=== PATIENT | female | born 1990 | race Caucasian/White ===

== ENCOUNTER 2021-05-28 13:20 | Emergency (ER) | payer OTHER, SELFPAY ==
--- OUTSIDE RECORDS SUMMARY | 2021-05-28 13:23 | XMS REPORT | Continuity of Care Document ---
:1990 Author Organization [facility] t Address [address] [place] [address] Care Team Providers Name Role Phone Asked, Pcp Primary Care Physician Unavailable Arnold Attending Clinician Unavailable Arnold Attending Clinician Unavailable Sugar CARNEY B Attending Clinician Terrell Attending Clinician Vika Garcia MD Attending Clinician Arnold Admitting Clinician Unavailable Payers Payer Name Policy Type Policy Number Effective Date Expiration Date S ource Problems Condition Condition Condition Status Onset Resolution Last Treating Co mments Source Name Details Category Date Date Treatment Clinician Date No known No known Disease Unive rs active active ity of problems problems [facility] Allergies, Adverse Reactions, Alerts Allergy Allergy Status Severity Reaction(s) Onset Inactive Treating Comm ents Source Name Type Date Date Clinician mirtazap Drug Active Moderate restless/spa [facility] No Known Drug Active [facility] mirtazap Drug Active Moderate restless/spa [facility] mirtazap Drug Active Moderate restless/spa [facility] mirtazap Drug Active Moderate restless/spa [facility] Social History Social Habit Start Date Stop Date Quantity Comments Source Alcohol intake [facility] Sex Assigned At [facility] Cigarettes smoked 2016-06-28 2016-06-28 [facility] current (pack per 00:00:00 00:00:00 day) - Reported Smoking Status Start Date Stop Date Source Current every day smoker 2018-12-10 00:00:00 [facility] Medications Ordered Filled Start Stop Current Ordering Indication Dosage Frequency Signature Comments Components Source Medication Medication Date Date Medication? Clinician (SIG) Name Name lamoTRIgine Yes 25mg 25 mg, Univ ers (LAMICTAL) 12-11 Oral, ity of tablet 25 21:00: DAILY, [place] mg 00 First dose Medical on Mon Branch 12/11/18 at 1600, Until Discontinu ed, Routine Yes 1{tbl} 1 tablet, Un guru vitamin 12-11 Oral, ity of w/FA 15:15: DAILY, [place] (PRENATABS 00 First dose Med ical RX) tablet on Mon Branch 1 tablet 12/11/18 at 1015, Until Discontinu ed, Routine Nitrofurant 2019- No 100mg 100 mg, U nivers oin&Nit. 12-11 Oral, BID, ity of Macrocryst 15:15: 12:59 14 doses, [place] (MACROBID) 00 :00 First dose Med ical 100 mg on Mon Branch capsule 100 12/11/18 at mg 1015, Last dose on 12/17/18 at 2000, AGUSTÍN
Re ason for Anti-Infec tive: Documented Infection< br>Documen vandana Infection Site: Urine<b r>Duration of Therapy: 7 days acetaminoph 2019- No 650mg 650 mg, U nivers en 12-10 Oral, ity of (TYLENOL) 20:30: 19:45 ONCE, 1 [place] tablet 650 00 :00 dose, [place] [facility] esteban mg 12/10/18 at Branch 1530, AGUSTÍN morpHINE 2019- No 2mg 2 mg, Slow Un guru injection 2 12-04 IV Push, ity of mg 02:30: 01:21 ONCE, 1 [place] 00 :00 dose, [facility] 12/03/18 at Branch 2130, STAT morpHINE 2019- No 4mg 4 mg, Slow Un guru injection 4 12-03 IV Push, ity of mg 22:00: 21:07 ONCE, 1 [place] 00 :00 dose, [facility] 12/03/18 at Branch 1700, STAT phenytoin Yes 300mg Take 3 Unive rs Extended 7-13 Caps by ity of (DILANTIN 00:00: mouth at [facility]) 00 bedtime. Medical 100 mg Branch capsule phenytoin Yes 300mg Take 3 Unive rs Extended 7-13 Caps by ity of (DILANTIN 00:00: mouth at [facility]) 00 bedtime. Medical 100 mg Branch capsule sulfamethox 2019- No 1{tbl} Take 1 Tab Univers azole-trime 11-04 by mouth ity of thoprim 00:00: 00:00 every 12 [place] (BACTRIM 00 :00 (twelve) Medical DS) 800-160 hours. Branch mg tablet HYDROcodone 2019- No 1{tbl} Take 1 Tab Univers -acetaminop 10-07 by mouth ity of hen (NORCO) 00:00: 00:00 every 6 [place] 7.5-325 mg 00 :00 (six) Medical per tablet hours as Branc h needed for Pain. proMETHazin 2019- No 25mg Take 1 Tab Univers e 6-15 12-03 by mouth ity of (PHENERGAN) 00:00: 00:00 every 6 [place] 25 mg 00 :00 (six) Medical tablet hours as Branch needed for Nausea and Vomiting (N/V). sulfamethox 2019- No 1{tbl} Take 1 Tab Univers azole-trime -15 12-03 by mouth ity of thoprim 00:00: 00:00 every 12 [place] (BACTRIM 00 :00 (twelve) Medical DS) 800-160 hours. Branch mg tablet HYDROcodone 2019- No 1{tbl} Take 1-2 Univers -acetaminop 06-23 08-11 Tabs by ity alebrt harrison (NORCO 00:00: 00:00 mouth [place] 5) 5-325 mg 00 :00 every 6 Medic al tablet (six) Branch hours as needed for Pain unrelieved by non-narcot ic analgesics . No known No [facility] medications [facility] Vital Signs Vital Name Observation Time Observation Value Comments Source Height/Length 2021-05-12 09:07:07 165.30 cm Measured Weight Dosing 2021-05-12 09:07:07 56.69 kg Height/Length 2021-05-12 08:42:25 165.30 cm Measured Weight Dosing 2021-05-12 08:42:25 56.69 kg Height/Length 2021-05-12 08:42:24 165.30 cm Measured Weight Dosing 2021-05-12 08:42:24 56.69 kg Systolic blood 2018-12-12 03:31:00 106 mm[Hg] Univer sity of [facility] Diastolic blood 2018-12-12 03:31:00 58 mm[Hg] [facility] Heart rate 2018-12-12 03:31:00 56 /min [facility] Body temperature 2018-12-12 03:31:00 36.78 [facility] Respiratory rate 2018-12-12 03:31:00 18 /min Univ [facility] Oxygen saturation in 2018-12-12 03:31:00 99 /min [facility] Arterial blood by [facility] Pulse oximetry Branch Body weight 2018-12-10 18:12:00 56.7 kg [facility] Systolic blood 2018-12-12 03:31:00 106 mm[Hg] Univer sity of [facility] Diastolic blood 2018-12-12 03:31:00 58 mm[Hg] Unive rsity of [facility] Heart rate 2018-12-12 03:31:00 56 /min [facility] Body temperature 2018-12-12 03:31:00 36.78 [facility] rate 2018-12-12 03:31:00 18 /min Univ ersity of [place] [facility] Oxygen saturation in 2018-12-12 03:31:00 99 /min University of Arterial blood by [facility] Pulse oximetry Branch Body weight 2018-12-10 18:12:00 56.7 kg Universi ty of [place] [facility] Systolic blood 2018-12-04 02:50:00 107 mm[Hg] Univer sity of pressure [place] [facility] Diastolic blood 2018-12-04 02:50:00 61 mm[Hg] Unive rsity of pressure [place] [facility] Heart rate 2018-12-04 02:50:00 56 /min Universi ty of [place] [facility] Respiratory rate 2018-12-04 02:50:00 18 /min Univ ersity of [place] [facility] Oxygen saturation in 2018-12-04 02:50:00 97 /min University of Arterial blood by [facility] Pulse oximetry Branch Body temperature 2018-12-03 22:59:00 35.61 [facility] ersity of [place] [facility] [place] Body weight 2018-12-03 20:14:00 56.7 kg Universi ty of [place] [facility] Systolic blood 2018-12-04 02:50:00 107 mm[Hg] Univer sity of pressure [place] [facility] Diastolic blood 2018-12-04 02:50:00 61 mm[Hg] Unive rsity of pressure [place] [facility] Heart rate 2018-12-04 02:50:00 56 /min Universi ty of [place] [facility] Respiratory rate 2018-12-04 02:50:00 18 /min Univ ersity of [place] [facility] Oxygen saturation in 2018-12-04 02:50:00 97 /min University of Arterial blood by [facility] Pulse oximetry Branch Body temperature 2018-12-03 22:59:00 35.61 [facility] ersity of [place] [facility] Body weight 2018-12-03 20:14:00 56.7 kg Universi [facility] Procedures Procedure Date / Time Performing Clinician Source Performed GALV/CLC ONLY - URINE 2018-12-10 19:45:00 Hardeep Wooten [facility] DRUG (IMMUNOASSAY) - [facility] COMPREHENSIVE DRUG SCREEN URINALYSIS 2018-12-10 19:45:00 Hardeep Wooten [facility] POCT TEST 2018-12-10 19:45:00 Hardeep Wooten [facility] CREATINE KINASE 2018-12-10 18:34:00 Hardeep Wooten [facility] COMP. METABOLIC PANEL 2018-12-10 18:34:00 Hardeep Wooten [facility] ([id number]) [facility] SALICYLATE 2018-12-10 18:34:00 Hardeep Wooten [facility] ETHANOL 2018-12-10 18:34:00 Hardeep Wooten [facility] CBC WITH DIFFERENTIAL 2018-12-10 18:34:00 Hardeep Wooten [facility] US PELVIS COMPLETE WITH 2018-12-04 01:02:56 [facility] TRANSVAGINAL [facility] BASIC METABOLIC PANEL 2018-12-03 21:01:00 [facility] (NA, K, CL, CO2, Medical Branch GLUCOSE, BUN, CREATININE, CA) TOTAL BETA HCG ASSAY 2018-12-03 21:01:00 Mega Garcia [facility] CBC WITH DIFFERENTIAL 2018-12-03 21:01:00 Mega Garcia [facility] EXTRA TUBE LT. BLUE 2018-12-03 21:01:00 Mega Garcia [facility] EXTRA TUBE LT. GREEN 2018-12-03 21:01:00 Mega Garcia [facility] URINALYSIS 2018-12-03 21:00:00 Mega Garcia [facility] Plan of Care Planned Activity Planned Date Details Comments Source Future Scheduled Test COVID-19 VACCINE (1) [facility] [code = COVID-19 VACCINE (1)] Future Scheduled Test Screening for [facility] malignant neoplasm of cervix (procedure) [code = 674220139] Future Scheduled Test INFLUENZA VACCINE [facility] [code = INFLUENZA VACCINE] Encounters Start End Encounter Admission Attending Care Care Encounter Source Date/Time Date/Time Type Type Clinicians Facility Department ID 2018-12-12 2018-12-19 Inpatient 1 [place] Barrett [facility] [id number] 00:33:00 12:15:00 Ventura Barrett [facility] 2018-12-10 2018-12-11 Emergency Hardeep Wooten TRAUMA [id number] [facility] 13:14:42 23:20:00 [facility] [id number] ity of Mega Garcia E [id number] [place] [id number] [facility] 014 Branch 2018-12-10 2018-12-11 Emergency Hardeep Wooten TRAUMA [id number]. [id number] 13:14:42 23:20:00 [facility] [id number] Jose, Mega E [id number] [id number] 014 2018-12-03 2018-12-03 Emergency Jose, TRAUMA [id number] [facility] 15:16:11 21:54:00 [place] [id number] ity of 4[place]2.686 [place] [id number] [facility] 014 Branch 2018-12-03 2018-12-03 Emergency Jose, TRAUMA [id number] 15:16:11 21:54:[address] [facility] [id number] [id number] 014 Results Test Description Test Time Test Comments Results Result Comments Source ABORh Retype 2018-12-15 21:03:31 Test Item Value Reference Range Interpretation Comme nts Methodology (test code = Methodology) Test-Tube(TT) Anti-A (test code = Anti-A) 4+ Anti-B (test code = Anti-B) 0 Anti-AB (test code = Anti-AB) NT Anti-D (test code = Anti-D) 4+ ABORh Retype (test code = ABORh Retype) A POS 3C ABSC [id number] 20:16:25 Test Item Value Reference Range Interpretation Comments SC1 IS (test code = SC1 IS) NT SC2 IS (test code = SC2 IS) NT SC3 IS (test code = SC3 IS) NT SC1 37 (test code = SC1 37) 0 SC2 37 (test code = SC2 37) 0 SC3 37 (test code = SC3 37) 0 SC1 AHG (test code = SC1 AHG) 0 SC2 AHG (test code = SC2 AHG) 0 SC3 AHG (test code = SC3 AHG) 0 SC1 CC (test code = SC1 CC) 2+ SC2 CC (test code = SC2 CC) 2+ SC3 CC (test code = SC3 CC) 2+ Antibody Screen (3C) (test code Negative ABSC = Antibody Screen (3C)) [id number] 19:10:47 Test Item Value Reference Range Interpretation Comments Previous History (test code = No Prev History Previous History) BBID (test code = BBID) [id number] Methodology (test code = Test-Tube(TT) Methodology) Anti-A (test code = Anti-A) 4+ Anti-B (test code = Anti-B) 0 Anti-D (test code = Anti-D) 4+ DCon (test code = DCon) NT A1 (test code = A1) 0 B cells (test code = B cells) 4+ ABORh (test code = ABORh) A POS US OB 1st Trimester [id number] 17:35:44Patient: VINCENZO ROMERO Date/Time12/15/2018 17:00 CDTReason for ExamCrampingReportPELVIC ULTRASOUND- OB first trimesterCLINICAL HISTORY: CrampingCOMMENTS: Grayscale and color Doppler ultrasound the pelvis was performed using transabdominal technique.Beta-hCG: Not providedLast menstrual period: 10/07/2018A single living intrauterine isidentified. The crown- rump length measures 4.5 cm. The mean sac diameter is 5.4 cm. Gestational ageby ultrasound is 11 weeks 3 days. heart rate is 149 bpm.The anteverted uterus measures 11.3 x7.8 x 7.6 cm. Neither ovary is identified on the transabdominal images.IMPRESSION:Single living intrauterine with an ultrasound age of 11 weeks 3 days. This corresponds to an estimated due date of 07/03/2019.LOCATION: [facility] Final Dictated by: MD Neil Adam FDictated DT/TM: 12/15/2018 5:32 pmSigned by: MD Neil Adam FSigned (Electronic Signature): 12/15/2018 5:35 [id number] 20:20:00 Test Item Value Reference Range Interpretation Comments APPEARANCE (test code = Cloudy Clear A 7396982340) COLOR (test code = Straw Yellow A 4419569979) PH (test code = 4.8-8.0 5645244705) SP GRAVITY (test code = 1.003-1.030 0725263375) GLU U QUAL (test code = Normal Normal 4875913400) BLOOD (test code = Negative Negative 1182674851) KETONES (test code = Negative Negative 3417399764) PROTEIN (test code = Negative Negative 2887-8) UROBILIN (test code = Normal Normal 1843335741) BILIRUBIN (test code = Negative Negative 1700440751) NITRITE (test code = Negative Negative 7275907031) LEUK PARKER (test code = 500/uL Negative A 9565953024) RBC/HPF (test code = See_Comment [Autom ated message] 2401750049) The system [employer] generated this result transmitted ref erence range: 0 - 3 HP F. The reference range was not used to int erpret this result as normal/abnormal . WBC/HPF (test code = See_Comment H [Autom ated message] 1239087526) The system [employer] generated this result transmitted ref erence range: 0 - 5 HP F. The reference range was not used to int erpret this result as normal/abnormal . BACTERIA (test code = Few Negative A 2672100838) MUCOUS (test code = Slight Negative LPF A 1157076121) SQ EPITH (test code = See_Comment H [Auto mated message] 0978335688) The system [employer] generated this result transmitted ref erence range: <=2 HPF. The reference range was not used to int erpret this result as normal/abnormal . YEAST BUD (test code = See_Comment H [Aut omated message] 3384470242) The system [employer] generated this result transmitted ref erence range: <=1 HPF. The reference range was not used to int erpret this result as normal/abnormal . YEAST HYPH (test code = See_Comment Spinlister [Au tomated message] 1051722544) The system [employer] generated this result transmitted ref erence range: <=1 HPF. The reference range was not used to int erpret this result as normal/abnormal . Lab Interpretation (test Abnormal code = 60138-4) [facility] [id number] 20:16:00 Test Item Value Reference Range Interpretation Comments AMPHET (test code = Negative Negative 0934174190) HANH U (test code = Negative Negative 5700471556) BENZO U (test code = Negative Negative 8223718119) Cocaine Metabolite (test Negative Negative code = 8246678495) METHADONE (test code = Negative Negative 7164043471) OPIATES (test code = Negative Negative 8020479247) PCP (test code = Negative Negative 9338890938) THC (test code = Presumptive Positive Negative A 4297869387) MIRIAM (test code = MIRIAM) Urine Drug Cutoff RangesCocaine:? 150 ng/mLBenzodiazepines: ? 200 ng/mLMethadone:? 300 ng/mLAmphetamine:? 1,000 ng/mLOpiates:? 300 ng/mLCannabinoids:?50 ng/mLPhencyclidine:? 25 ng/mLBarbiturates:?20 0 ng/mLThe results are to be used only for medical (i.e., treatment) purposes. Unconfirmed screening results must not be used for non-medical purposes (e.g., employment testing, legal testing). Lab Interpretation (test Abnormal code = 53459-7) [facility]PO[facility] [id number] 19:51:00 Test Item Value Reference Range Interpretation Comments POCT PREG (test code = 1605) Positive On board controls acceptable Yes with C Line (test code = 3574) POCT PREG LOT # (test code = Lot: [id number]) POCT PREG TEST DATE Exp: 2020-04-24 (test code = 3576) Lab Interpretation (test code Abnormal = 92820-6) [facility] HospitalETH[facility]OL2019-08-18 18:59:00 Test Item Value Reference Range Interpretation Comments ALCOHOL (test code = <10 mg/dL 5694092383) MIRIAM (test code = Toxic Greater than or MIRIAM) equal to 80 mg/dL.NOTE: Whole blood values are approximately 10% to 15% lower than serum and plasma. [facility] Hospital[facility]AL[facility]ATE2019-08-18 18:59:00 Test Item Value Reference Range Interpretation Comments SALICYLATE (test code <10 mg/L = 4522921939) MIRIAM (test code = MIRIAM) Therapeutic Range:? Analgesic and Antipyretic Use? 20-100 mg/L? Anti-Inflammatory Use? 100-250 mg/LToxic Range:? Greater than 300 mg/L [facility] HospitalACETAMINOPHEN2019-08-18 18:58:00 Test Item Value Reference Range Interpretation Comments ACETAMINOP (test code = <10.0 10-30 L 2224869697) MIRIAM (test code = MIRIAM) Toxic: Greater than 200 ug/mL @ 4 hour post ingestion or greater than 50 ug/mL @ 12 hour post ingestion Lab Interpretation (test Abnormal code = 33397-3) [facility]. METABOLIC PANEL (60176)2018-12-10 18:57:00 Test Item Value Reference Range Interpretation Comments NA (test code = 137 mmol/L 135-145 9252066912) K (test code = 3.7 mmol/L 3.5-5 7405906520) CL (test code = 106 mmol/L 98-108 8944331545) CO2 TOTAL (test code = 21 mmol/L 23-31 L 2874987912) AGAP (test code = 2-16 4525734166) BUN (test code = 5 mg/dL 7-23 L 9652766199) GLUCOSE (test code = 93 mg/dL 70-110 4597751506) CREATININE (test code = 0.53 mg/dL 0.5-1.04 3333353458) TOTAL BILI (test code = 0.4 mg/dL 0.1-1.1 8451364598) CALCIUM (test code = 9.6 mg/dL 8.6-10.6 1005364759) T PROTEIN (test code = 7.0 g/dL 6.3-8.2 3325543998) ALBUMIN (test code = 4.2 g/dL 3.5-5 2003561964) ALK PHOS (test code = 31 U/L 34-122 L 5581244880) ALT(SGPT) (test code = 9 U/L 9-51 1681023830) AST(SGOT) (test code = 17 U/L 13-40 9703103575) eGFR Calculation mL/min/1.73m2 (Non-) (test code = 4528297871) eGFR Calculation mL/min/1.73m2 () (test code = 4271132376) MIRIAM (test code = MIRIAM) Association of Glomerular Filtration Rate (GFR) and Staging of Kidney Disease*+ + + +| GFR (mL/min/1.73 m2)?| With Kidney Damage?|?Without Kidney Damage+ --------+ --------+ +|?>90?|?S tage one?|? Normal?+ ---------+ ---------+ +|?60-89? |?Stage two?|? Decreased GFR? + --+ --+ ------+|?30-59?|?Stage three?|? Stage three? + --+ --+ ------+|?15-29?|?Stage four? |? Stage four?+ -------+ -------+ +|?<15 (or dialysis)?|?Stage five? |? Stage five?+ -------+ -------+ +*Each stage assumes the associated GFR level has been in effect for at least three months.?Stages 1 to 5, with or without kidney disease, indicate chronic kidney disease.Notes: Determination of stages one and two (with eGFR >59mL/min/1.73 m2) requires estimation of kidney damage for at least three months as defined by structural or functional abnormalities of the kidney, manifested by either:Pathological abnormalities or Markers of kidney damage (including abnormalities in the composition of the blood or urine or abnormalities in imaging tests). Lab Interpretation Abnormal (test code = 26770-6) [facility] HospitalCREATINE [id number] 18:57:00 Test Item Value Reference Range Interpretation Comments CK (test code = 2849974512) 34 U/L 33-194 Lab Interpretation (test code = Normal 46769-7) [facility] HospitalCBC WITH [id number] 18:46:00 Test Item Value Reference Range Interpretation Comments WBC (test code = See_Comment [Automated 1471-2) message] The sy stem which generated this result transmitted reference range : 4.30 - 11.10 10*3/?L. The reference range was not used to interpret this result as normal/abnormal . RBC (test code = See_Comment [Automated 487-9) message] The sy stem which generated this result transmitted reference range : 3.93 - 5.25 10*6/?L. The reference range was not used to interpret this result as normal/abnormal . HGB (test code = 13.5 g/dL 11.6-15 718-7) HCT (test code = 40.2 % 35.7-45.2 4544-3) MCV (test code = 84.8 fL 80.6-95.5 787-2) MCH (test code = 28.5 pg 25.9-32.8 785-6) MCHC (test code = 33.6 g/dL 31.6-35.1 786-4) RDW-SD (test code = 42.4 fL 39-49.9 06268-4) RDW-CV (test code = 13.5 % 12-15.5 788-0) PLT (test code = See_Comment L [Automated 777-3) message] The sy stem which generated this result transmitted reference range : 166 - 358 10*3/ ?L. The reference r cyndee was not used to interpret this result as normal/abnormal . MPV (test code = 11.7 fL 9.5-12.9 51977-6) NRBC/100 WBC (test See_Comment [Automat ed code = 2101645599) message] The system which generated this result transmitted reference range : 0.0 - 10.0 /100 WBCs. The refer ence range was not u sed to interpret th is result as normal/abnormal . NRBC x10^3 (test code <0.01 See_Comment [Auto mated = 1609401252) message] The s ystem which generated this result transmitted reference range : 10*3/?L. The reference range was not used to interpret this result as normal/abnormal . GRAN MAT (NEUT) % 67.0 % (test code = 770-8) IMM GRAN % (test code 0.30 % = 1798441323) LYMPH % (test code = 24.4 % 736-9) MONO % (test code = 5.5 % 5905-5) EOS % (test code = 2.5 % 713-8) BASO % (test code = 0.3 % 706-2) GRAN MAT x10^3(ANC) 4.59 10*3/uL 1.88-7.09 (test code = 4266661835) IMM GRAN x10^3 (test <0.03 0-0.06 code = 8318024218) LYMPH x10^3 (test code 1.67 10*3/uL 1.32-3.29 = 731-0) MONO x10^3 (test code 0.38 10*3/uL 0.33-0.92 = 742-7) EOS x10^3 (test code = 0.17 10*3/uL 0.03-0.39 711-2) BASO x10^3 (test code <0.03 0.01-0.07 = 704-7) Lab Interpretation Abnormal (test code = 71009-4) [facility] PELVIS COMPLETE WITH [id number] 01:47:47 Live intrauterine corresponding to a gestational age of 9 weeksand 5 days. No evidence tosuggest ovarian torsion. I, MD. Harriet, have reviewed this study and agree with the abovereport.* * * * * * * * ORIGINAL REPORT * * * * * * * *TRANSABDOMINAL AND TRANSVAGINAL PELVIC ULTRASOUND: HISTORY:?, left lower pelvic pain. ? Torsion/cyst pain Beta HCG equals 60,982.00. LMP: 09/27/2018 COMPARISON:?None FINDINGS: Transabdominal and transvaginal pelvic ultrasounds were performed.? The uterus is normal in size and echotexture and contains a normalgestational sac. A live intrauterine was demonstrated with acrown rump length of 2.77 mm corresponding to a gestational ageof 9 weeksand 5 days. M-mode evaluation demonstrated evidence of heart tonesmeasuring 161 bpm. No significant free fluid is present in the rectouterine pouch. The right ovary measures 1.7 x 1.1 x 1.6 cm (5.4 mL) and the left ovarymeasuring 2.1 x 1.2 x 1.8 cm (2.4 mL). A anechoic structure within theright ovary demonstrates peripheral blood flow, consistent with a corpusluteal cyst. Bilateral ovarian blood flow is demonstrated on Doppler study. Demb, Radiant Results Inft User - 12/03/2018 8:49 PM CDT* * * * * * * * ORIGINAL REPORT * * * * * * * *TRANSABDOMINAL AND TRANSVAGINAL PELVIC ULTRASOU ND:HISTORY: , left lower pelvic pain. ? Torsion/cyst pain Beta HCG equals 60,982.00.LMP: 09/27/2018 COMPARISON: NoneFINDINGS: Transabdominal and transvaginal pelvic ultrasounds were performed. The uterus is normal in size and echotexture and contains a normalgestational sac. A live intrauterine was demonstrated with acrown rump length of 2.77 mm corresponding to a gestational age of 9 weeksand 5 days. M-mode evaluation demonstrated evidence of heart tonesmeasuring 161 bpm. No significant free fluid is present in the rectouterine pouch.The right ovary measures 1.7 x 1.1 x1.6 cm (5.4 mL) and the left ovarymeasuring 2.1 x 1.2 x 1.8 cm (2.4 mL). A anechoic structure within theright ovary demonstrates peripheral blood flow, consistent with a corpusluteal cyst. Bilateral ovarian blood flow is demonstrated on Doppler study.IMPRESSIONLive intrauterine correspondingto a gestational age of 9 weeksand 5 days.No evidence to suggest ovarian torsion.I, Freeman Mccracken MD., have reviewed this study and agree with the abovereport.[facility] [id number] 23:52:00 Test Item Value Reference Range Interpretation Comments BETA HCG (test See_Comment [Automated m essage] code = The system [employer] h 8100795961) generated this result transmit vandana reference range : Non- fe male and male patien ts: <5 mIU/mL. The reference range was not used to interpret this result as normal/abnormal . MIRIAM (test code Gestational = MIRIAM) Age?Range (mIU/mL)1-10?Weeks?4 [id number] Weeks?[id number] -22 Weeks?7480-05730572- 40 Weeks?1531-704791Htc tin has been reported to cause a negative bias, interpret results relative to patient's use of biotin. [facility]2019-[facility] 21:47:00 Test Item Value Reference Range Interpretation Comments APPEARANCE (test code = Clear Clear 5699659467) COLOR (test code = Yellow Yellow 1329016203) PH (test code = 4.8-8.0 6497197825) SP GRAVITY (test code = 1.003-1.030 5706519019) GLU U QUAL (test code = Normal Normal 3154648256) BLOOD (test code = Negative Negative 1361650508) KETONES (test code = Negative Negative 2120601298) PROTEIN (test code = Negative Negative 2887-8) UROBILIN (test code = Normal Normal 2614319506) BILIRUBIN (test code = Negative Negative 1856320154) NITRITE (test code = Negative Negative 5237100824) LEUK PARKER (test code = Negative Negative 5958943871) RBC/HPF (test code = See_Comment [Autom ated message] 9136392343) The system [employer] generated this result transmitted ref erence range: 0 - 3 HP F. The reference range was not used to int erpret this result as normal/abnormal . WBC/HPF (test code = See_Comment [Autom ated message] 5371874896) The system [employer] generated this result transmitted ref erence range: 0 - 5 HP F. The reference range was not used to int erpret this result as normal/abnormal . BACTERIA (test code = Few Negative A 4867183525) SQ EPITH (test code = See_Comment H [Auto mated message] 5539620180) The system [employer] generated this result transmitted ref erence range: <=2 HPF. The reference range was not used to int erpret this result as normal/abnormal . Lab Interpretation (test Abnormal code = 24990-1) [facility] (NA, K, CL, CO2, GLUCOSE, BUN, CREATININE, CA)2018-12-03 21:30:00 Test Item Value Reference Range Interpretation Comments NA (test code = 137 mmol/L 135-145 8362382954) K (test code = 3.5 mmol/L 3.5-5 8582506723) CL (test code = 107 mmol/L 98-108 3719535383) CO2 TOTAL (test code = 21 mmol/L 23-31 L 8221369356) AGAP (test code = 2-16 1843917968) BUN (test code = 6 mg/dL 7-23 L 5000847709) GLUCOSE (test code = 94 mg/dL 70-110 6285844056) CREATININE (test code = 0.51 mg/dL 0.5-1.04 4968843577) CALCIUM (test code = 9.4 mg/dL 8.6-10.6 9861331457) eGFR Calculation mL/min/1.73m2 (Non-) (test code = 1410935388) eGFR Calculation mL/min/1.73m2 () (test code = 9674982378) MIRIAM (test code = MIRIAM) Association of Glomerular Filtration Rate (GFR) and Staging of Kidney Disease*+ + + +| GFR (mL/min/1.73 m2)?| With Kidney Damage?|?Without Kidney Damage+ --------+ --------+ +|?>90?|?S tage one?|? Normal?+ ---------+ ---------+ +|?60-89? |?Stage two?|? Decreased GFR? + --+ --+ ------+|?30-59?|?Stage three?|? Stage three? + --+ --+ ------+|?15-29?|?Stage four? |? Stage four?+ -------+ -------+ +|?<15 (or dialysis)?|?Stage five? |? Stage five?+ -------+ -------+ +*Each stage assumes the associated GFR level has been in effect for at least three months.?Stages 1 to 5, with or without kidney disease, indicate chronic kidney disease.Notes: Determination of stages one and two (with eGFR >59mL/min/1.73 m2) requires estimation of kidney damage for at least three months as defined by structural or functional abnormalities of the kidney, manifested by either:Pathological abnormalities or Markers of kidney damage (including abnormalities in the composition of the blood or urine or abnormalities in imaging tests). Lab Interpretation Abnormal (test code = 19194-7) [facility] WITH [id number] 21:17:00 Test Item Value Reference Range Interpretation Comments WBC (test code = See_Comment [Automated 2238-2) message] The sy stem which generated this result transmitted reference range : 4.30 - 11.10 10*3/?L. The reference range was not used to interpret this result as normal/abnormal . RBC (test code = See_Comment [Automated 095-6) message] The sy stem which generated this result transmitted reference range : 3.93 - 5.25 10*6/?L. The reference range was not used to interpret this result as normal/abnormal . HGB (test code = 13.1 g/dL 11.6-15 718-7) HCT (test code = 38.3 % 35.7-45.2 4544-3) MCV (test code = 84.2 fL 80.6-95.5 787-2) MCH (test code = 28.8 pg 25.9-32.8 785-6) MCHC (test code = 34.2 g/dL 31.6-35.1 786-4) RDW-SD (test code = 41.9 fL 39-49.9 46436-9) RDW-CV (test code = 13.5 % 12-15.5 788-0) PLT (test code = See_Comment L [Automated 777-3) message] The sy stem which generated this result transmitted reference range : 166 - 358 10*3/ ?L. The reference r cyndee was not used to interpret this result as normal/abnormal . MPV (test code = 12.1 fL 9.5-12.9 26597-4) NRBC/100 WBC (test See_Comment [Automat ed code = 5509251034) message] The system which generated this result transmitted reference range : 0.0 - 10.0 /100 WBCs. The refer ence range was not u sed to interpret th is result as normal/abnormal . NRBC x10^3 (test code <0.01 See_Comment [Auto mated = 6582935965) message] The s ystem which generated this result transmitted reference range : 10*3/?L. The reference range was not used to interpret this result as normal/abnormal . GRAN MAT (NEUT) % 59.1 % (test code = 770-8) IMM GRAN % (test code 0.20 % = 9084111603) LYMPH % (test code = 29.2 % 736-9) MONO % (test code = 8.8 % 5905-5) EOS % (test code = 2.4 % 713-8) BASO % (test code = 0.3 % 706-2) GRAN MAT x10^3(ANC) 3.70 10*3/uL 1.88-7.09 (test code = 1225026605) IMM GRAN x10^3 (test <0.03 0-0.06 code = 9839163984) LYMPH x10^3 (test code 1.83 10*3/uL 1.32-3.29 = 731-0) MONO x10^3 (test code 0.55 10*3/uL 0.33-0.92 = 742-7) EOS x10^3 (test code = 0.15 10*3/uL 0.03-0.39 711-2) BASO x10^3 (test code <0.03 0.01-0.07 = 704-7) Lab Interpretation Abnormal (test code = 16574-5) [facility]"
--- NOTE | 2021-05-28 14:32 | RAD REPORT ---
EXAM DESCRIPTION: CT - Head Brain Wo Cont - 05/28/2021 2:23 pm CLINICAL HISTORY: HEADACHE Headache, drowsiness COMPARISON: No comparisons TECHNIQUE: All CT scans are performed using dose optimization technique as appropriate and may inclu de automated exposure control or mA/KV adjustment according to patient size. FINDINGS: No intracranial hemorrhage, hydrocephalus or extra-axial fluid collection.No areas of brai n edema or evidence of midline shift. The paranasal sinuses and mastoids are clear. The calvarium is intact. IMPRESSION: No acute intracranial abnormality.
--- NOTE | 2021-05-28 14:37 | RAD REPORT ---
EXAM DESCRIPTION: CT - Soft Tissue Neck W/Contr CLINICAL HISTORY: r/o abscess COMPARISON: Head Brain Wo Cont dated 05/28/[address] scans are performed using dose optimization technique as appropriate and may includ e automated exposure control or mA/KV adjustment according to patient size. FINDINGS: Nasopharyngeal tissues are normal in appearance. Fossa Rosenmller are normal. Parapharyngeal fat triangles are symmetric. Tongue base structures are normal. Epiglottis and aryepig lottic folds are normal. Piriform sinuses are well aerated. The vocal cords are normal in appearance. Mildly prominent jugular chain lymph nodes bilaterally. Salivary glands are normal in appearance. 10 mm periapical abscess is seen left first mandibular molar. Posterior right mandibular molar demons trates a large dental gabino. Small right mandibular first molar periapical abscess also present measu ring 6 mm. No odontogenic abscess seen. Upper lung sterling are clear. Included intracranial contents are unremarkable. IMPRESSION: Dental related findings as detailed. No odontogenic abscess. Elsewhere, no acute process seen in the neck.
--- NOTE | 2021-05-28 14:55 | EDPHYS ---
Physician Documentation [facility] Name: Sena Gil Age: 31 yrs Sex: Female : 1990 Arrival Date: 05/28/2021 Time: 13:22 Bed 10 Private MD: ED Physician George Cooley HPI: 05/28 14:53 This 31 yrs old Female presents to ER via Ambulatory with complaints of Toothache, kb Headache. 14:53 The patient presents with pain. The problem is located in the lower right second molar kb (#31). Onset: The symptoms/episode began/occurred 3 month(s) ago. Duration: The symptoms are continuous. Modifying factors: The symptoms are alleviated by nothing, the symptoms are aggravated by nothing. Associated signs and symptoms: Pertinent positives: pain. Severity of symptoms: At their worst the symptoms were moderate, in the emergency department the symptoms are unchanged. The patient has not experienced similar symptoms in the past. The patient has not recently seen a physician. 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 - Social history:: Smoking status: Reported history of juuling and/or vaping. ROS: 14:52 Constitutional: Negative for fever, chills, and weight loss. kb 14:52 ENT: Positive for dental pain. 14:52 Neuro: Positive for headache. 14:52 All other systems are negative. Exam: 14:52 Constitutional: This is a well developed, well nourished patient who is awake, alert, kb and in no acute distress. Head/Face: Normocephalic, atraumatic. ENT: Moist Mucous membranes Cardiovascular: Regular rate and rhythm with a normal S1 and S2. No gallops, murmurs, or rubs. No pulse deficits. Respiratory: Respirations even and unlabored. No increased work of breathing. Talking in full sentences Skin: Warm, dry with normal turgor. Normal color. MS/ Extremity: Pulses equal, no cyanosis. Neurovascular intact. Full, normal range of motion. Neuro: Awake and alert, GCS 15, oriented to person, place, time, and situation. Moves all extremities. Normal gait. Psych: Awake, alert, with orientation to person, place and time. Behavior, mood, and affect are within normal limits. 14:52 ENT: Dental exam: pain, that is moderate, specifically in the lower right second molar (#31). Vital Signs: 13:29 BP 112 / 88; Pulse 87; Resp 18; Temp 98.8; Pulse Ox 99% ; Weight 68.04 kg; Height 5 ft. jh5 5 in. (165.10 cm); Pain 10/10; 15:01 BP 126 / 84; Pulse 81; Resp 16; Pulse Ox 98% on R/A; ab2 13:29 Body Mass Index 24.96 (68.04 kg, 165.10 cm) jh5 MDM: 13:36 Patient medically screened. kb 14:52 Data reviewed: vital signs, nurses notes. Data interpreted: Pulse oximetry: on room air kb is 99 %. Interpretation: normal. Counseling: I had a detailed discussion with the patient and/or guardian regarding: the historical points, exam findings, and any diagnostic results supporting the discharge/admit diagnosis, radiology results, the need for outpatient follow up, a dentist, to return to the emergency department if symptoms worsen or persist or if there are any questions or concerns that arise at home. 05/28 13:50 Order name: CT Head Brain wo Cont; Complete Time: 14:34 kb 05/28 13:50 Order name: CT Soft Tissue Neck W/contr; Complete Time: 14:39 kb 05/28 13:50 Order name: IV Start; Complete Time: 14:02 kb Administered Medications: No medications were administered Disposition: 18:00 Co-signature as Attending Physician, George Cooley MD I agree with the assessment and kdr plan of care. Disposition Summary: 05/28/21 14:54 Discharge Ordered Location: Home kb Condition: Stable kb Diagnosis - Periapical abscess without sinus kb Followup: kb - With: Emergency Department - When: As needed - Reason: Worsening of condition Followup: kb - With: Private Physician - When: 2 - 3 days - Reason: Recheck today's complaints, Continuance of care, Re-evaluation by your physician Discharge Instructions: - Discharge Summary Sheet kb - Dental Abscess, [id number] kb Forms: - Medication Reconciliation Form kb - Thank You Letter kb - Antibiotic Education kb - Prescription Opioid Use kb Prescriptions: - Augmentin 875-125 mg Oral Tablet - take 1 tablet by ORAL route every 12 hours for 10 days; 20 tablet; Refills: 0, kb Product Selection Permitted Signatures: Dispatcher [employer] EDInna Dee, George Snowden MD MD kdr Rees, Jessica, RN RN jh5
--- NOTE | 2021-05-28 14:55 | ER ---
Nurse's Notes [facility] Name: Sena Gil Age: 31 yrs Sex: Female : 1990 Arrival Date: 05/28/2021 Time: 13:22 Bed 10 Private MD: Diagnosis: Periapical abscess without sinus Presentation: 05/28 13:29 Chief complaint: Patient states: right sided toothache that's radiating up into 5 headache with pressure behind her right eye; ibuprofen and Tylenol and it's so painful. Coronavirus screen: Vaccine status: Patient reports receiving the 2nd dose of the covid vaccine. Ebola Screen: Patient negative for fever greater than or equal to 101.5 degrees Fahrenheit, and additional compatible Ebola Virus Disease symptoms Patient denies exposure to infectious person. Patient denies travel to an Ebola-affected area in the 21 days before illness onset. Initial Sepsis Screen: Does the patient meet any 2 criteria? No. Patient's initial sepsis screen is negative. Does the patient have a suspected source of infection? No. Patient's initial sepsis screen is negative. Risk Assessment: Do you want to hurt yourself or someone else? Patient reports no desire to harm self or others. Onset of symptoms was February 2021. 13:29 Method Of Arrival: Ambulatory [facility] 13:29 Acuity: VINAY 4 [facility] Triage Assessment: 13:33 General: Appears in no apparent distress. uncomfortable, well groomed, well developed, [facility] Behavior is calm, cooperative, appropriate for age. Pain: Complains of pain in right jaw up into head. EENT: Reports pain in forehead, right cheek, right ear, right methodist and right jaw. 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 - Social history:: Smoking status: Reported history of juuling and/or vaping. Screenin:47 Abuse screen: Denies threats or abuse. Denies injuries from another. Nutritional ab2 screening: No deficits noted. Tuberculosis screening: No symptoms or risk factors identified. Fall Risk None identified. Assessment: 13:45 General: Appears in no apparent distress. comfortable, Behavior is calm, cooperative, ab2 appropriate for age. Pain: Complains of pain in right eye, right ear and right jaw Pain currently is 10 out of 10 on a pain scale. Neuro: Level of Consciousness is awake, alert, obeys commands, Oriented to person, place, time, situation, Appropriate for age .Net Programmer are equal bilaterally Moves all extremities. Gait is steady, Speech is normal, Facial symmetry appears normal, Reports headache in right frontal area. Cardiovascular: Denies chest pain, shortness of breath, Heart tones S1 S2 present Patient's skin is warm and dry. Chest pain is denied. Respiratory: Airway is patent Breath sounds are clear bilaterally. GI: No deficits noted. No signs and/or symptoms were reported involving the gastrointestinal system. : No deficits noted. No signs and/or symptoms were reported regarding the genitourinary system. EENT: Reports pain in right jaw. Vital Signs: 13:29 BP 112 / 88; Pulse 87; Resp 18; Temp 98.8; Pulse Ox 99% ; Weight 68.04 kg; Height 5 ft. jh5 5 in. (165.10 cm); Pain 10/10; 15:01 BP 126 / 84; Pulse 81; Resp 16; Pulse Ox 98% on R/A; ab2 13:29 Body Mass Index 24.96 (68.04 kg, 165.10 cm) 5 ED Course: 13:22 Patient arrived in ED. rg4 13:33 Triage completed. 5 13:33 Arm band placed on right wrist. 5 13:36 Inna Hardy [facility]C [facility] kb 13:36 George Cooley MD is Attending Physician. kb 13:37 Damian Lopez is Primary Nurse. ab2 13:48 Patient has correct armband on for positive identification. Placed in gown. Bed in low ab2 position. Call light in reach. Side rails up X2. 13:48 No provider procedures requiring assistance completed. ab2 14:02 Inserted saline lock: 22 gauge in right antecubital area, using aseptic technique. ab2 14:23 CT Head Brain wo Cont In Process Unspecified. EDMS 14:23 CT Soft Tissue Neck W/contr In Process Unspecified. EDMS 15:01 IV discontinued, intact, bleeding controlled, No redness/swelling at site. Pressure ab2 dressing applied. Administered Medications: No medications were administered Outcome: 14:54 Discharge ordered by . emily 15:01 Discharged to home ambulatory. ab2 15:01 Condition: good 15:01 Discharge instructions given to patient, Instructed on discharge instructions, follow up and referral plans. Demonstrated understanding of instructions, follow-up care. 15:02 Patient left the ED. ab2 Signatures: Dispatcher [employer] EDInna Dee, SCRAP SAWYER-C JULIANNA-Alexandra Lal rg4 Reshma Kelley, RN RN jh5 Damian Lopez ab2
[2021-05-28 15:09] VITALS: TEMP 98.8
[2021-05-28 15:10] VITALS: BP 126/84; O2SAT 98
== END 2021-05-28 15:02 | disposition home or self-care (01) ==
LOC: ER 13:20
DX: K04.7 Periapical abscess without sinus (principal); F32.A Depression, unspecified
CPT/HCPCS: 82565; 70450; 70491; 99283; Q9967